=== PATIENT | female | born 1995 | race Hispanic/Latino ===

== ENCOUNTER 2018-04-01 17:56 | Emergency (ER) | payer BC, OTHER ==
--- NOTE | 2018-04-01 20:33 | ER ---
Nurse's Notes [facility] Name: Marlena Almaraz Age: 22 yrs Sex: Female : 1995 Arrival Date: 04/01/2018 Time: 17:59 Bed 28 Private MD: Rafael Hightower Diagnosis: Contact with contaminated hypodermic needle Presentation: 04/01 18:10 Presenting complaint: Patient states: Needle stick to right wrist at 1640 today just aj after administering insulin to a patient. Transition of care: patient was not received from another setting of care. Onset of symptoms was April 01, 2018. Risk Assessment: Do you want to hurt yourself or someone else? Patient reports no desire to harm self or others. Care prior to arrival: None. 18:10 Method Of Arrival: Ambulatory aj 18:10 Acuity: YOUSUF 4 aj 20:48 Initial Sepsis Screen: Does the patient meet any 2 criteria? No. Patient's initial mb3 sepsis screen is negative. Does the patient have a suspected source of infection? No. Patient's initial sepsis screen is negative. Triage Assessment: 18:12 General: Appears in no apparent distress. comfortable, Behavior is calm, cooperative, aj appropriate for age. Pain: Denies pain. Neuro: Level of Consciousness is awake, alert, obeys commands, Oriented to person, place, time, situation, Appropriate for age. Respiratory: Airway is patent Respiratory effort is even, unlabored, Respiratory pattern is regular, symmetrical. Derm: Skin is intact, is healthy with good turgor, Skin is pink, warm \T\ dry. normal. 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 - Social history:: Smoking status: Patient/guardian denies using tobacco. - Ebola Screening: : Patient negative for fever greater than or equal to 101.5 degrees Fahrenheit, and additional compatible Ebola Virus Disease symptoms Patient denies exposure to infectious person Patient denies travel to an Ebola-affected area in the 21 days before illness onset No symptoms or risks identified at this time. Screenin:47 Abuse screen: Denies threats or abuse. Nutritional screening: No deficits noted. mb3 Tuberculosis screening: No symptoms or risk factors identified. Fall Risk None identified. Assessment: 20:44 General: Appears in no apparent distress. comfortable, Behavior is calm, cooperative, mb3 appropriate for age. Pain: Denies pain. Neuro: No deficits noted. Cardiovascular: No deficits noted. Respiratory: No deficits noted. GI: No deficits noted. Vital Signs: 18:12 BP 133 / 95; Pulse 79; Resp 15; Temp 98.3; Pulse Ox 97% on R/A; Weight 52.62 kg; Height aj 5 ft. 1 in. (154.94 cm); 20:49 BP 130 / 79; Pulse 68; Resp 16; Pulse Ox 98% on R/A; mb3 18:12 Body Mass Index 21.92 (52.62 kg, 154.94 cm) ED Course: 17:59 Patient arrived in ED. sb2 18:00 Rafael Hightower MD is Private Physician. sb2 18:11 Triage completed. aj 18:12 Arm band placed on right wrist. Patient placed in an exam room. aj 18:42 Timothy Rawls NP is PHCP. pm1 18:42 Qamar Goncalves MD is Attending Physician. pm1 19:32 Black Palomares, KRISTYN is Primary Nurse. mb3 20:32 Rafael Hightower MD is Referral Physician. pm1 20:47 No provider procedures requiring assistance completed. Patient did not have IV access mb3 during this emergency room visit. 20:48 Patient has correct armband on for positive identification. mb3 Administered Medications: No medications were administered Outcome: 20:33 Discharge ordered by MD. pm1 20:48 Discharged to home ambulatory. mb3 20:48 Condition: stable 20:48 Discharge instructions given to patient, Instructed on discharge instructions, follow up and referral plans. Demonstrated understanding of instructions, follow-up care. 20:49 Patient left the ED. mb3 Signatures: Jasmin Dean RN RN aj Marinas, Patrick, NP REAMING MACHINE OPERATOR FOR PLASTIC pm1 Jacqueline Acosta sb2 Black Palomares, KRISTYN RN mb3
--- NOTE | 2018-04-01 20:33 | EDPHYS ---
Physician Documentation [facility] Name: Marlena Almaraz Age: 22 yrs Sex: Female : 1995 Arrival Date: 04/01/2018 Time: 17:59 Bed 28 Private MD: Rafael Hightower ED Physician Qamar Goncalves HPI: 04/02 00:00 This 22 yrs old Female presents to ER via Ambulatory with complaints of Needle pm1 Stick Exposure. 00:00 Onset: The symptoms/episode began/occurred just prior to arrival. Associated signs and pm1 symptoms: Pertinent negatives: heavy bleeding, numbness distal to injury, suspected foreign body. patient with puncture wound to right wrist after administration of insulin to patient. . 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 - Social history:: Smoking status: Patient/guardian denies using tobacco. - Ebola Screening: : Patient negative for fever greater than or equal to 101.5 degrees Fahrenheit, and additional compatible Ebola Virus Disease symptoms Patient denies exposure to infectious person Patient denies travel to an Ebola-affected area in the 21 days before illness onset No symptoms or risks identified at this time. ROS: 04/02 00:00 Constitutional: Negative for fever, chills, and weight loss, Cardiovascular: Negative pm1 for chest pain, palpitations, and edema, Respiratory: Negative for shortness of breath, cough, wheezing, and pleuritic chest pain, Abdomen/GI: Negative for abdominal pain, nausea, vomiting, diarrhea, and constipation, Back: Negative for injury and pain, MS/Extremity: Negative for injury and deformity. Neuro: Negative for headache, weakness, numbness, tingling, and seizure. Skin: Positive for puncture, of the right wrist. Exam: 00:00 Constitutional: This is a well developed, well nourished patient who is awake, alert, pm1 and in no acute distress. Head/Face: Normocephalic, atraumatic. Chest/axilla: Normal chest wall appearance and motion. Nontender with no deformity. No lesions are appreciated. Cardiovascular: Regular rate and rhythm with a normal S1 and S2. No gallops, murmurs, or rubs. Normal PMI, no JVD. No pulse deficits. Respiratory: Lungs have equal breath sounds bilaterally, clear to auscultation and percussion. No rales, rhonchi or wheezes noted. No increased work of breathing, no retractions or nasal flaring. Back: No spinal tenderness. No costovertebral tenderness. Full range of motion. 00:00 MS/ Extremity: Pulses equal, no cyanosis. Neurovascular intact. Full, normal range of motion. 00:00 Skin: Appearance: normal except for affected area, injury, puncture(s), of the right wrist. Vital Signs: 04/01 18:12 BP 133 / 95; Pulse 79; Resp 15; Temp 98.3; Pulse Ox 97% on R/A; Weight 52.62 kg; Height aj 5 ft. 1 in. (154.94 cm); 20:49 BP 130 / 79; Pulse 68; Resp 16; Pulse Ox 98% on R/A; mb3 18:12 Body Mass Index 21.92 (52.62 kg, 154.94 cm) aj MDM: 18:56 Patient medically screened. pm1 20:31 Data reviewed: vital signs. Data interpreted: Pulse oximetry: on room air is 97 %. pm1 Interpretation: normal. Counseling: I had a detailed discussion with the patient and/or guardian regarding: the historical points, exam findings, and any diagnostic results supporting the discharge/admit diagnosis, the need for outpatient follow up, to return to the emergency department if symptoms worsen or persist or if there are any questions or concerns that arise at home, follow up with lab results and follow up with PCP for needle stick exposure. 04/01 19:26 Order name: HEPATITIS EXPOSURE PANEL pm1 04/01 19:26 Order name: HIV (1; Complete Time: 03:36 EDMS Administered Medications: No medications were administered Disposition: 04/01/18 20:33 Discharged to Home. Impression: Contact with contaminated hypodermic needle. - Condition is Stable. - Discharge Instructions: Needle Stick Injury. - Medication Reconciliation Form, Thank You Letter form. - Follow up: Emergency Department; When: As needed; Reason: Worsening of condition. Follow up: Rafael Hightower MD; When: 2 - 3 days; Reason: Recheck today's complaints, Continuance of care, Re-evaluation by your physician. - Problem is new. - Symptoms have improved. Addendum: 04/03/2018 21:36 Co-signature as Attending Physician, Qamar Goncalves MD. r n Signatures: Dispatcher [employer] EDMS Jasmin Dean RN Qamar Madrid MD MD rn Timothy Rawls, WATER PUMP ASSEMBLER WATER PUMP ASSEMBLER pm1 Black Palomares RN RN mb3 Corrections: (The following items were deleted from the chart) 04/01 20:49 20:33 04/01/2018 20:33 Discharged to Home. Impression: Contact with contaminated mb3 hypodermic needle. Condition is Stable. Forms are Medication Reconciliation Form, Thank You Letter, Antibiotic Education, Prescription Opioid Use. Follow up: Emergency Department; When: As needed; Reason: Worsening of condition. Follow up: Rafael Hightower; When: 2 - 3 days; Reason: Recheck today's complaints, Continuance of care, Re-evaluation by your physician. Problem is new. Symptoms have improved. pm1
[2018-04-06 03:29] LABS: HBsAG Nonreactive (Nonreactive)
== END 2018-04-01 20:49 | disposition home or self-care (01) ==
LOC: ER 17:56
DX: Z20.9 Contact with and (suspected) exposure to unspecified communicable disease (principal); Z88.0 Allergy status to penicillin
CPT/HCPCS: 36415; 86705; 86803; 87340; 99281; G0433